=== PATIENT | female | born 1985 | race Caucasian/White ===

== ENCOUNTER 2018-11-17 16:33 | Emergency (ER) | payer OTHER ==
[~2018-11-17] VITALS: Ht 167.6 cm; Wt 67.0 kg
[~2018-11-17 16:33] MED LIST: PREN1TAB13 PO
[2018-11-17 16:46] VITALS: Ht 167.6 cm; Wt 67.0 kg
[2018-11-17] MEDS ORDERED: PRED20TA PO (19:07)
[2018-11-17] MEDS ORDERED: HYDR-842 PO (19:07)
[2018-11-17] MEDS ORDERED: TRIA15CR55 TOP (19:07)
--- NOTE | 2018-11-17 19:10 | ERD ---
ER Documentation Chief Complaint Chief Complaint skin rash on lower back and arms also very itchy HPI 33-year-old female presents with 4 months of a rash to her upper extremities and trunk and back. The patient has tried Benadryl without relief. The patient has not tried any other medications. No fevers or chills, no new exposures or detergents. She denies any jaundice or icterus. The rash is raised, erythematous, pruritic. ROS All systems reviewed and are negative except as per history of present illness. Medications Home Meds Active Scripts Triamcinolone Acetonide (Triamcinolone Acetonide) 0.1% - 15 Gm Cream.gm., 1 APPLIC TOP BID for 7 Days, #1 TUB Prov:KJ VELOZ MD 11/17/18 Prednisone* (Prednisone*) 20 Mg Tab, 40 MG PO DAILY for 4 Days, TAB Prov:KJ VELOZ MD 11/17/18 Hydroxyzine Hcl* (Atarax*) 25 Mg Tab, 25 MG PO Q6H PRN for ITCHING, #30 TAB Prov:KJ VELOZ MD 11/17/18 Reported Medications Vit-Iron Fumarate-FA ( Vitamins Tablet) 1 Tab Tablet, 1 TAB PO DAILY, TAB 08/07/15 Allergies Allergies: Coded Allergies: Penicillins (Verified Allergy, Severe, 08/06/15) PMhx/Soc Medical and Surgical Hx: pt denies Medical Hx, pt denies Surgical Hx Hx Alcohol Use: No Hx Substance Use: No Hx Tobacco Use: No Smoking Status: Never smoker FmHx Family History: No diabetes Physical Exam Vitals Vital Signs Date Temp Pulse Resp B/P (MAP) Pulse Ox O2 O2 Flow FiO2 Time Delivery Rate 11/17/18 98.1 99 18 120/60 99 16:46 (80) Physical Exam General: Well developed, well nourished, no acute distress Head: Normocephalic, atraumatic. Eyes: EOM intact ENT: Moist mucous membranes Neck: Full ROM Respiratory: No respiratory distress Cardiovascular: Well perfused distally Abdominal: Nondistended : Deferred MSK: No edema, no unilateral swelling, 5/5 strength Neurologic: Alert and oriented, moving all extremities, normal speech, steady gait Skin: Raised erythematous papular rash to the extremities and trunk, no lesions to the palms, no mucous membrane lesions Psych: Normal mood Results 24 hrs Current Medications Medications Dose Sig/Vicky Start Time Status Last (Trade) Ordered Route PRN Stop Time Admin Dose Reason Admin Hydroxyzine 25 mg ONCE ONCE 11/17/18 HCl PO 19:30 (Atarax) 11/17/18 19:31 Prednisone 60 mg ONCE ONCE 11/17/18 (Prednisone) PO 19:30 11/17/18 19:31 Procedures/MDM Clinical exam consistent with idiopathic dermatitis. The patient will benefit from topical steroid and systemic steroid. The patient is to follow-up with a curtain cutter hand given chronicity of symptoms. No evidence of hyperbilirubinemia that would warrant laboratory testing. No signs or symptoms concerning for anaphylaxis. The patient does not have an identifiable emergent medical condition that warrants inpatient hospitalization at this time. The patient is deemed safe for discharge with outpatient follow-up. We discussed follow up with the patient's primary care doctor within 24 to 48 hours as needed. We also discussed return to the emergency room for worsening symptoms or worsening condition. Outpatient referral: Dermatology Discharge Medications: Atarax, prednisone, triamcinolone Departure Diagnosis: Primary Impression: Dermatitis Condition: Stable Patient Instructions: Dermatitis, Non-Specific Referrals: [facility] MD, JOSEPH F HARTMAN, ROBERT M MD Additional Instructions: Call your primary care doctor TOMORROW for an appointment during the next 1 WEEK.Tell the personal secretary that you were referred from this facility.See the doctor sooner or return here if your condition worsens before your appointment time. KJ VELOZ MD Nov 17, 2018 19:10
[2018-11-17] MEDS ORDERED: hydrOXYzine HCL 25 MG TAB PO ONE (19:30)
[2018-11-17] MEDS ORDERED: predniSONE 20 MG TAB PO ONE (19:30)
[2018-11-17 19:39] VITALS: BP 118/64; PULSE 68; RESP 16
== END 2018-11-17 19:40 | disposition home or self-care (01) ==
LOC: E/R 16:33
DX: L30.9 Dermatitis, unspecified (principal)
CPT/HCPCS: J7512; Z7502; Z7610; 99283

== ENCOUNTER 2019-04-25 22:44 | Emergency (ER) | payer OTHER ==
[~2019-04-25] VITALS: Ht 157.5 cm; Wt 68.1 kg
[~2019-04-25 22:44] MED LIST changes: +HYDR-842 PO; +IBUP-1542 PO; +PHEN-538 PO; +PRED20TA PO; +SULF1TAB31 PO; +TRIA15CR55 TOP
[2019-04-25 22:49] VITALS: BP 138/72; PULSE 85; RESP 16; Ht 157.5 cm; Wt 68.1 kg
[2019-04-26] MEDS ORDERED: PHENAZOPYRIDINE 100 MG TAB PO ONE (00:30)
== END 2019-04-26 00:24 | disposition home or self-care (01) ==
LOC: FTE 22:44
DX: N39.0 Urinary tract infection, site not specified (principal)
CPT/HCPCS: 81001; 81025; 84703; 87086; Z7502; Z7610; 81003; 99283

== ENCOUNTER 2019-07-09 12:13 | Emergency (ER) | payer OTHER ==
[~2019-07-09] VITALS: Ht 157.5 cm; Wt 70.0 kg
[~2019-07-09 12:13] MED LIST changes: +MECL-77 PO
[2019-07-09 12:27] VITALS: BP 126/66; PULSE 79; RESP 18; Ht 157.5 cm; Wt 70.0 kg
== END 2019-07-09 15:00 | disposition home or self-care (01) ==
LOC: E/R 12:13
DX: R51 Headache (principal); Z87.891 Personal history of nicotine dependence
CPT/HCPCS: 70450; 81001; 84703; Z7502; 81003